=== PATIENT | male | born 1980 | race Caucasian/White ===

== ENCOUNTER 2016-07-28 17:19 | Emergency (ER) | payer BC ==
[~2016-07-28] VITALS: Ht 188 cm; Wt 93.9 kg
[2016-07-28 20:16] VITALS: BP 138/71
== END 2016-07-28 20:16 | disposition home or self-care (01) ==
LOC: ED 17:19
DX: S60.221A Contusion of right hand, initial encounter (principal); I10 Essential (primary) hypertension; W17.89XA Other fall from one level to another, initial encounter; Y93.89 Activity, other specified; Y92.89 Other specified places as the place of occurrence of the external cause; Y99.8 Other external cause status